=== PATIENT | female | born 1945 | race Caucasian/White ===

== ENCOUNTER 2021-04-08 08:11 | Emergency (ER) | payer MEDICARE, SELFPAY ==
--- NOTE | 2021-04-08 08:18 | ED.URI ---
HPI - URI/Sore Throat General Chief Complaint: Upper Respiratory Infection Stated Complaint: cough runny nose Time Seen by Provider: 04/08/21 08:18 Source: patient and RN notes reviewed History of Present Illness HPI Narrative: Patient is 75-year-old female who presents the urgent care with complaints of runny nose and cough since . Patient has been using Mucinex and Robitussin [id number] without much cough relief. Denies of any other illness in the home. Patient did have a Covid vaccine. Patient denies any fever, chills, nausea, vomiting, chest pain. Patient denies of any shortness of breath but states she has heard some wheezing. Patient has not had a Covid test since her symptoms started. Denies any known Covid exposure. No other acute complaints. No acute distress noted. Patient aware of the plan of care. Some parts of this dictation were generated by voice recognition software and may contain typographical and/or grammatical inaccuracies. Related Data Home Medications Medication Instructions Recorded Confirmed atorvastatin 40 mg PO DAILY 04/08/21 04/08/21 lisinopril 20 mg PO DAILY 04/08/21 04/08/21 metoprolol tartrate 50 mg PO DAILY 04/08/21 04/08/21 omeprazole 40 mg PO DAILY 04/08/21 04/08/21 Allergies Allergy/AdvReac Type Severity Reaction Status Date / Time No Known Allergies Allergy Verified 04/08/21 08:30 Review of Systems Review of Systems: CONSTITUTIONAL: Denies fever, chills, or sweats. EYES: Denies visual changes, redness, or discharge. ENT: Denies congestion, sore throat, or otalgia. Reports of rhinorrhea CARDIOVASCULAR: Denies chest pain, palpitations, or edema. RESPIRATORY: Reports of harsh cough without dyspnea GASTROINTESTINAL: Denies abdominal pain, nausea, vomiting, or diarrhea. GENITOURINARY: Denies dysuria or hematuria. SKIN: Denies rash or itching. MUSCULOSKELETAL: Denies back pain, joint pain, or myalgia. NEUROLOGIC: Denies headache, numbness, or weakness. All other systems reviewed are negative, except as documented in HPI. PMFSH Comments At the time of my signature, I reviewed and agree with the nursing past medical, surgical, social, and family history. There is no relevant family history pertinent to the patient complaint. Exam Narrative: GENERAL: This is a well-nourished, well-developed patient, in no apparent distress. HEAD: normocephalic, atraumatic. EYES: PERRL. Sclera clear/white. Vision is grossly intact. EARS: External ears normal, auditory canals clear and without drainage, TMs normal without perforation. Hearing grossly intact. NOSE: External nose normal with no obvious nasal discharge, nares without redness, no rhinorrhea. THROAT: Mucous membranes moist, posterior pharynx clear. Moderate postnasal drainage NECK: Neck supple CARDIOVASCULAR: Regular rate and rhythm without murmurs, gallops, or rubs. RESPIRATORY: Crackles throughout, coarse bibasilar. Expiratory wheezes to the right upper cleared with cough SKIN: warm, intact with no suspicious lesions or rash, good texture and turgor. NEURO: awake, alert, and oriented to person, place and time. There were no obvious focal neurologic abnormalities. EXTREMITIES: No clubbing, cyanosis, or edema. Course Course Level of Care: Express Care Visit Vital Signs Vital signs: Vital Signs Temperature 97.6 F 04/08/21 08:22 Pulse Rate 88 04/08/21 08:22 Respiratory Rate 20 04/08/21 08:22 Blood Pressure 156/56 H 04/08/21 08:22 Pulse Oximetry 98 04/08/21 08:22 Temperature 97.6 F 04/08/21 08:30 Pulse Rate 88 04/08/21 08:30 Respiratory Rate 20 04/08/21 08:30 Blood Pressure 156/56 H 04/08/21 08:30 Pulse Oximetry 98 04/08/21 08:30 Reviewed-patient is informed that they may have pre-hypertension or hypertension based on a blood pressure reading in the department. I recommend the patient call the primary care provider listed on their discharge instructions or a physician of their [facility]
[2021-04-08 08:22] VITALS: BP 156/56; PULSE 88; RESP 20; TEMP 36.4; O2SAT 98
[2021-04-08 08:30] VITALS: BP 156/56; PULSE 88; RESP 20; TEMP 36.4; O2SAT 98
== END 2021-04-08 08:35 | disposition home or self-care (01) ==
PROVIDERS: Emergency Provider Nurse Practitioner Family
DX: J40 Bronchitis, not specified as acute or chronic (principal); E78.00 Pure hypercholesterolemia, unspecified; I10 Essential (primary) hypertension; K21.9 Gastro-esophageal reflux disease without esophagitis
CPT/HCPCS: 99203; G0463